=== PATIENT | female | born 1970 | race Caucasian/White ===

== ENCOUNTER 2018-07-22 00:43 | Outpatient (CLI) | payer BC, SELFPAY ==
--- NOTE | 2018-07-22 09:00 | DI.MAMMO_ITS ---
SYMPTOM/DIAGNOSIS: SCREENING, Z12.31 MAMMOGRAM: Mammograms were interpreted according to the usual protocol including computer analysis with CAD system, tomosynthesis and C view imaging. Comparison with prior examinations. Breast density D. No masses or microcalcifications are seen. There is nothing to suggest malignancy. IMPRESSION: Negative mammogram. Routine screening is recommended. Category I. MQSA ASSESSMENT OF FINDINGS: Negative. Category 1. Patient will receive a letter notifying them of these results. BI-RADS category D. The breasts are extremely dense, which lowers the sensitivity of mammography.
== END 2018-07-22 01:03 ==
PROVIDERS: PCP Family Medicine; Visit Provider Family Medicine
DX: Z12.31 Encounter for screening mammogram for malignant neoplasm of breast (principal)
CPT/HCPCS: 77063; 77067

== ENCOUNTER 2019-03-08 12:52 | Emergency (ER) | payer BC, SELFPAY ==
[2019-03-08] VITALS (8 sets, daily range): BP systolic 132–169; BP diastolic 60–88; PULSE 85–106; RESP 18–20; TEMP 36.7; O2SAT 97–100
--- NOTE | 2019-03-08 12:54 | ED.GENADUL_ITS ---
Discharge Plan Disposition Patient Disposition: HOME Condition: Fair Discharge Details Chief Complaint: GenMedical Clinical Impression: Hypokalemia, Facial tingling sensation Primary Care Provider: Frankie Lobo ED Provider: Lamar Laura Home Meds and New Rx's Prescriptions: New potassium chloride 20 mEq tablet extended release 20 meq PO DAILY Qty: 14 RF: 0 Continued paroxetine HCl [Paxil CR] 25 MG tablet extended release 24 hr 25 mg PO DAILY RF: 0 ibuprofen 600 MG tablet 600 mg PO Q6H Qty: 40 RF: 1 Discharge Instructions Instructions: Hypokalemia (ED) Additional Instructions: Encourage hydration. Take daily potassium supplement. Try to reduce stress/anxiety. Please follow up with primary care next week for reevaluation. If you develop shortness of breath, chest pain, difficulty breathing, weakness, difficulty or change in mentation, headache, visual changes or other new/worsening symptoms please seek care urgently once again. Referrals: Frankie Lobo [Primary Care Provider] - Discharge Data Discharge Date/Time-TO BE ENTERED AT DEPARTURE: 03/08/19 14:32 Medical Decision Making <Jhonny Pizarro DO - Last Filed: 06/01/19 15:06> EKG 13: 03 Rate 103, sinus tachycardia, intervals normal, nonspecific nondiagnostic ST depression less than 1 mm in V4. No ST elevations, no evidence of STEMI, inverted T wave is present in V1. No evidence of S1Q3t3, Brugada, delta wave, or epsilon wave. No evidence of significant right heart strain. <MERY Bauman - Last Filed: 03/08/19 14:42> Patient 48-year-old female presents today with chief complaint of tingling. She reports symptoms began a few hours ago while at work. Denies any new exposure. No rash or itching. She denies any shortness of breath or chest pain. Further explanation since this is experiencing her throat being numb and tingling around her mouth, lower aspect of her face, anterior chest and primarily left arm. She was endorsing feeling her hot hands as cold. No recent illness, no chest pain, no shortness of breath. No posterior calf pain. Exam is significant for tachycardia 105. Mini exam is within normal limits. Neuro and cardiac exam at other abnormality. Patient does have a history of a murmur but I was unable to appreciate this on today's exam. Considered arrhythmia, ACS, electrolyte abnormality, thyroid abnormality stroke, anemia versus other etiology. Patient does not sound classic for ACS as she did not experience any chest pain or shortness of breath. Is not exertional. Will obtain EKG, troponin. Also consider PE given her recent travel. Patient does not use any estrogen supplementation. No posterior calf pain. Patient still short of breath. Oxygen is 98%. Will obtain a d-dimer. Also obtain chest x- ray and head CT. EKG reviewed by Dr. Pizarro without acute abnormality. CT reviewed by radiologist, read as negative. Labs reviewed for potassium 3.2. Will replenish this year. Remaining labs without significant abnormality. Thyroid is within normal limits, d-dimer is less than 500, troponin is less than 0.02. Other electrolytes within normal limits. Discussed these findings with patient. She is feeling overall much improved. Her heart rate is now down into the 80s, her blood pressure has come down. Patient also has history of anxiety which may have been precipitating some of these symptoms. We did discuss anxiolytic techniques. She does report increased stress and I did advise avoiding as much stress as possible. She does seem to have good support system and her . She was given strict return precautions. I have advised to follow-up with primary care next week. She will return urgently with any new or worsening symptoms. All her questions and concerns were addressed and she is in agreement this plan peer HPI <Jhonny Pizarro DO - Last Filed: 06/01/19 15:06> General Date/Time Provider Initiated Documentation: 03/08/19 12:54 . Related Data Home Medications Medication Instructions Recorded Confirmed paroxetine HCl [Paxil CR] 25 mg PO DAILY 05/31/13 03/08/19 ibuprofen 600 mg PO Q6H #40 tab 04/16/18 03/08/19 potassium chloride 20 meq PO DAILY #14 tab 03/08/19 Previous Rx's Medication Instructions Recorded ibuprofen 600 mg PO Q6H #40 tab 04/16/18 potassium chloride 20 meq PO DAILY #14 tab 03/08/19 Allergies Allergy/AdvReac Type Severity Reaction Status Date / Time codeine Allergy Intermediate Skin Rash Unverified 03/08/19 13:17 Penicillins Allergy Intermediate Skin Rash Unverified 03/08/19 13:17 <MERY Bauman - Last Filed: 03/08/19 14:42> General Mode of arrival: ambulatory . Limitations to Documentation: no limitations . Information obtained by: patient, family and RN notes reviewed . HPI Narrative: Patient 48-year-old female presenting today with chief complaint of tingling in her tongue, around her mouth, across her chest and on the left arm. She states that she had headache this morning that was mild is now resolved. She reports she does have headaches and this is not atypical for her. Denies any visual change, weakness. No visual changes. Headache was not correlated with the onset of symptoms. Symptoms came on at work. She was very stressed at work that this is not atypical for her. She denies any chest pain or shortness of breath. States that she had one episode of nausea but that is since subsided and is no longer having any nausea, abdominal pain. No change in bowel or bladder habits. She does report that she is currently going through menopause. Has had intermittent bleeding for the past few weeks, currently has been bleeding for the past week. Has not had the symptoms historically. Was not exerting herself at the time of onset. Went to [place] 1 month ago by car. No other travel. No recent illness. Patient has history of mitral valve prolapse. Familial history, in several uncles, of CAD. <MERY Bauman - Last Filed: 03/08/19 14:42> Constitutional Reports as per HPI, Denies chills, Denies fever(s), Denies headache(s), Denies lethargy, Denies poor appetite and Denies weakness Eyes Denies change in vision and Denies loss of vision ENT Denies change in voice, Denies dizziness, Denies headache(s), Denies hoarseness, Denies lip swelling, Denies mouth lesions, Denies mouth pain, Denies sore throat, Denies throat swelling, Denies tongue swelling and Reports other (weird feeling in throat) Cardiovascular Reports as per HPI, Denies syncope, Denies dyspnea and Denies dyspnea on exertion Respiratory Reports as per HPI, Denies chest congestion, Denies cough, Denies pain on inspiration, Denies pain with cough, Denies dyspnea, Denies dyspnea on exertion and Denies wheezing Gastrointestinal Reports as per HPI, Denies abdominal pain, Denies diarrhea, Denies nausea and Denies vomiting Genitourinary Reports abnormal menses, Reports abnormal vaginal bleeding, Denies hematuria, Denies urinary frequency and Denies vaginal discharge Musculoskeletal Reports as per HPI, Denies abnormal gait, Denies back pain, Denies numbness and Reports tingling (mouth, face, neck, chest, LUE) Integumentary/Breasts Reports as per HPI and Denies rash Neurologic Reports as per HPI, Denies abnormal speech, Denies abnormal gait, Denies behavioral changes, Denies dizziness, Denies syncope, Denies headache(s), Denies focal weakness, Denies loss of vision, Denies memory loss, Denies numbness, Denies radicular pain, Denies sensory deficit, Reports tingling (mouth, face, neck, chest, LUE) and Denies weakness Psychiatric Reports anxiety, Denies behavioral changes and Denies memory loss Allergic/Immunologic Denies lip swelling, Denies throat swelling, Denies tongue swelling and Denies wheezing PFSH <Jhonny Pizarro DO - Last Filed: 06/01/19 15:06> Medical History Anxiety Breast lump Kidney stone Surgical History Breast, Lumpectomy Family History (Updated 04/02/14 @ 21:33 by ) Other Diabetes Hyperlipidemia Personal history of malignant neoplasm Social History Smoking/Tobacco Use Status: Current-Occasional Tobacco Type: cigarettes Alcohol Intake: current Alcohol Intake frequency: 3 or more drinks per day Drug use: Never Do you feel safe at home: Yes Do you feel safe in your relationship?: Yes <MERY Bauman - Last Filed: 03/08/19 14:42> Const General: cooperative, healthy appearing, comfortable, no acute distress and well developed Nutritional Appearance: average body habitus and well nourished Orientation: alert, awake and oriented x3 HENMT Head: normal to inspection Ears: hearing grossly normal bilaterally General nose exam: external nose normal Face and sinus: normal facial exam Mouth: oral mucosae normal, lip normal, tongue normal, moist mucous membranes, no audible dysphonia, no muffled voice, no trismus and No restricted motion Teeth and gingiva: dentition normal Throat: posterior oropharynx normal and tonsils absent Eyes General: appearance normal, both eyes and all related structures Alignment and Position: alignment normal Periorbital: periorbital findings normal Eyelids: eyelids normal Pupils: PERRL EOM: EOM intact bilaterally Neck Neck: normal visual inspection, full ROM, no lymphadenopathy, no meningeal signs, trachea midline and supple Thyroid: thyroid normal Chest Chest: normal inspection of the chest, normal palpation of entire chest wall and no crepitus Resp Effort & Inspection: normal respiratory effort, able to speak in complete sen tences and no respiratory distress Auscultation: clear to auscultation bilaterally, no rales, no rhonchi and no wheezes Cardio Rate: regular rate Rhythm: regular rhythm Heart Sounds: S1 normal and S2 normal GI Inspection: normal to inspection, no edema and non-distended Palpation: soft, no hepatosplenomegaly, not firm, no guarding, not rigid and nontender Auscultation: normal bowel sounds Skin General skin exam: no rashes or lesions noted Trauma: no lacerations or abrasions Neuro General: alert, awake and oriented x3 Cranial Nerves: CN's II-XI intact bilaterally Cognition: normal cognition Speech: speech normal Gait: normal gait Motor: muscle tone normal throughout, strength 5/5 throughout, no pronator drift, no movement abnormalities noted and no fasciculations Sensory Exam: no sensory deficits noted Coordination: [id number] test normal, [id number] test normal and rapid al ternating movement UE normal Extrem General: normal to inspection, normal capillary refill, no pedal edema, no calf tenderness and normal gait Psych Appearance: grossly normal and well kempt Mental Status: mental status grossly normal Speech and Movement: speech and movement normal
--- NOTE | 2019-03-08 13:06 | DI.RAD_ITS ---
SYMPTOMS/DIAGNOSIS: SHORTNESS OF BREATH CHEST X-RAY, PA AND LATERAL: No priors. The heart is normal in size. The lungs are clear. The mediastinal structures and pleura appear intact. IMPRESSION: Normal chest.
--- NOTE | 2019-03-08 13:16 | DI.CT_ITS ---
SYMPTOMS/DIAGNOSIS: TINGLING, CHANGE IN SPEECH SINCE THIS MORNING, CHILLS WITH SWEATS CT BRAIN, NONCONTRAST: No priors. The ventricular system is normal in appearance. There is no evidence of an intracranial mass lesion. There is no evidence of a subdural or epidural hematoma. No focal areas of decreased attenuation are seen. IMPRESSION: Normal noncontrast cranial CT. The findings were discussed with the Emergency Department on the date of the examination.
[2019-03-08] MEDS: Normal Saline 1,000 ML 150 ML IV (13:26)
[2019-03-08 13:30] LABS: Abs Immature Grans 0.03 k/cumm (0.0-0.09); Absolute Basophil Count 0.02 k/cumm (0.0-0.2); Absolute Eosinophil Count 0.17 k/cumm (0.0-0.7); Absolute Lymphocyte Count 2.18 k/cumm (1.2-3.4); Absolute Monocyte Count 0.73 k/cumm (0.11-0.7); Absolute Neutrophil Count 5.44 k/cumm (1.2-6.7); Basophils % 0.2; HCT 43.4 % (36.0-46.0); HGB 14.6 g/dL (12.0-15.5); Immature Grans % 0.4; Lymphocytes % 25.4; Mean Corp. HGB Concentration 33.6 g/dL (32.0-36.0); Mean Corpuscular Hemoglobin 32.4 pg (27.0-33.0); Mean Corpuscular Volume 96.2 fL (80-95); Mean Platelet Volume 9.5 fL (8.0-11.0); Monocytes % 8.5; Neutrophils % 63.5; Platelet Count 303 x1000/uL (130-400); RBC 4.51 m/cumm (4.00-5.20); RBC Distribution Width 13.2 % (11.7-14.6); White Blood Cell Count 8.57 k/cumm (4.4-10.8)
[2019-03-08 14:00] LABS: D-Dimer 169 ng/mlFEU (<500)
[2019-03-08 14:05] LABS: ALT 28 U/L (12-78); AST 21 U/L (15-37); Albumin 3.8 g/dL (3.4-5.0); Alkaline Phosphatase 66 U/L (46-116); Anion Gap 9.3 mmol/L (3-11); BUN 21 mg/dL (7-18); Bilirubin, Total 0.3 mg/dL (0.2-1.0); CO2 27.7 mmol/L (21.0-32.0); CREATININE 0.86 mg/dL (0.55-1.02); Calcium 9.3 mg/dL (8.5-10.1); Chloride 100 mmol/L (98-107); Glucose 120 mg/dL (70-100); Magnesium 1.9 mg/dL (1.8-2.4); Potassium 3.2 mmol/L (3.5-5.1); Sodium 137 mmol/L (136-145); TSH (W/Ref FT4) 2.85 uIU/mL (0.358-3.74); Total Protein 7.4 g/dL (6.4-8.2)
[2019-03-08 14:06] LABS: Troponin I < 0.02 ng/mL (0.00-0.06)
[2019-03-08] MEDS: Potassium Chloride 20 MEQ TABCR 40 MEQ PO (14:17)
== END 2019-03-08 14:32 | disposition home or self-care (01) ==
PROVIDERS: Emergency Provider Physician Assistant; PCP Family Medicine
DX: E87.6 Hypokalemia (principal); R20.2 Paresthesia of skin; R00.0 Tachycardia, unspecified; N95.9 Unspecified menopausal and perimenopausal disorder
CPT/HCPCS: 36415; 80053; 93005; 96360; 99285; 70450; 71046; 83735; 84443; 84484; 85025; 85379; 93010

== ENCOUNTER 2019-03-18 15:58 | Outpatient (CLI) | payer BC, SELFPAY ==
[2019-03-18 17:14] LABS: Anion Gap 8.1 mmol/L (3-11); BUN 22 mg/dL (7-18); CO2 27.9 mmol/L (21.0-32.0); Calcium 9.2 mg/dL (8.5-10.1); Chloride 103 mmol/L (98-107); Glucose 96 mg/dL (70-100); Sodium 139 mmol/L (136-145)
[2019-03-21 07:42] LABS: Vitamin D 25 Total 13.4 ng/ml (30-100)
== END 2019-03-18 16:18 ==
PROVIDERS: PCP Family Medicine; Visit Provider Physician Assistant
DX: E87.6 Hypokalemia (principal); Z00.00 Encounter for general adult medical examination without abnormal findings
CPT/HCPCS: 36415; 80048; 82306

== ENCOUNTER 2019-07-29 02:03 | Outpatient (CLI) | payer BC, SELFPAY ==
[2019-07-29 08:15] LABS: ALT 21 U/L (14-59); AST 19 U/L (15-37); Albumin 3.6 g/dL (3.4-5.0); Alkaline Phosphatase 73 U/L (46-116); Anion Gap 12.4 mmol/L (3-11); BUN 16 mg/dL (7-18); Bilirubin, Total 0.4 mg/dL (0.2-1.0); CO2 23.6 mmol/L (21.0-32.0); CREATININE 0.71 mg/dL (0.55-1.02); Calcium 9.1 mg/dL (8.5-10.1); Calculated LDL 70 mg/dL; Chloride 104 mmol/L (98-107); Cholesterol 193 mg/dL (50-200); Glucose 116 mg/dL (70-100); HDL Cholesterol 106 mg/dL (40-60); Potassium 4.1 mmol/L (3.5-5.1); Sodium 140 mmol/L (136-145); TSH (W/Ref FT4) 2.59 uIU/mL (0.36-3.74); Total Protein 7.2 g/dL (6.4-8.2); Triglyceride 85 mg/dL (30-150)
== END 2019-07-29 02:23 ==
PROVIDERS: PCP Family Medicine; Visit Provider Family Medicine
DX: Z00.00 Encounter for general adult medical examination without abnormal findings (principal); Z13.220 Encounter for screening for lipoid disorders; Z13.29 Encounter for screening for other suspected endocrine disorder; Z13.228 Encounter for screening for other metabolic disorders
CPT/HCPCS: 36415; 80053; 80061; 84443

== ENCOUNTER 2019-10-21 00:41 | Outpatient (CLI) | payer BC, SELFPAY ==
--- NOTE | 2019-10-21 07:51 | DI.US_ITS ---
EXAM: US ABDOMEN CLINICAL HISTORY: EPIGASTRIC PAIN, R10.13 TECHNIQUE: Ultrasound abdomen performed using standard protocol. COMPARISON: No priors for comparison FINDINGS: LIVER: Increased echogenicity consistent with hepatic steatosis. No bladder mass is seen sonographic ally. Hepatopetal flow is identified through the portal vein. GALLBLADDER: No evidence of cholelithiasis. No evidence of wall thickening. No pericholecystic fluid identified. KIDNEYS: Kidneys are symmetric in size. No evidence of renal calculi. No evidence of hydronephrosis. No renal mass or cyst identified. BILIARY SYSTEM: Common bile duct measures 1 millimeter. No intrahepatic biliary ductal dilation. JON'S SIGN: Negative. PANCREAS: Normal where visualized. SPLEEN: Not enlarged. ABDOMINAL AORTA AND IVC: Visualized portions normal caliber. ASCITES: None seen. IMPRESSION: Hepatic steatosis.
== END 2019-10-21 01:01 ==
PROVIDERS: PCP Family Medicine; Visit Provider Family Medicine
DX: R10.13 Epigastric pain (principal); K76.0 Fatty (change of) liver, not elsewhere classified
CPT/HCPCS: 76700

== ENCOUNTER 2020-05-23 00:45 | Outpatient (CLI) | payer BC, SELFPAY ==
--- NOTE | 2020-05-23 | DI.MAMMO_ITS ---
EXAM: MG MAMMO SCREENING CLINICAL HISTORY: SCREENING, Z12.31 TECHNIQUE: Mammograms were interpreted according to the usual protocol including computer analysis w [employer] CAD system, tomosynthesis and C-view imaging. COMPARISON: FINDINGS: The breasts are heterogeneously dense. No dominant mass or clumped microcalcification is identified in either breast. There are scattered microcalcifications seen throughout both breasts which are pre dominantly punctate in appearance and which appear grossly unchanged from prior examinations includin g July 2018. IMPRESSION: No specific evidence of malignancy at this time. Routine screening examinations are suggested at yea rly intervals due to the family history of breast carcinoma. BI-RADS Category 1 - Negative Breast Density - Category C - Heterogeneously dense
== END 2020-05-23 01:05 ==
PROVIDERS: PCP Family Medicine; Visit Provider Family Medicine
DX: Z12.31 Encounter for screening mammogram for malignant neoplasm of breast (principal); Z80.3 Family history of malignant neoplasm of breast
CPT/HCPCS: 77063; 77067